=== PATIENT | male | born 2005 | race Caucasian/White ===

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

== ENCOUNTER 2023-10-17 16:21 | Outpatient (REF) | payer MEDICAID, SELFPAY ==
[2023-10-17 21:42] LABS: VALPROIC ACID 27.2 ug/mL
== END 2023-10-17 16:22 | disposition home or self-care (01) ==
LOC: NCHCN 16:21
PROVIDERS: PCP Neuromusculoskeletal Medicine & OMM; Visit Provider Nurse Practitioner Family
DX: F84.0 Autistic disorder (principal); Z51.81 Encounter for therapeutic drug level monitoring; Z79.899 Other long term (current) drug therapy
CPT/HCPCS: 80164

== ENCOUNTER 2024-07-31 17:45 | Outpatient (REF) | payer MEDICARE, MEDICAID, SELFPAY ==
--- OUTSIDE RECORDS SUMMARY | 2024-07-31 17:47 | XMS_ITS | Data Portability ---
Author Organization [facility] Address [place] [address] Assessment No assessment recorded. Plan of Treatment Reminders Order Date Submit Date Provider Last Modified By Organization Details Last Modified Time Details Appointments Office Visit 2023 03:00P M Not available Not available Not available Follow Up 2023 03:30P M Not available Not available Not available Lab valproic acid, total, serum - 1R [id number] [facility] (Registration ), [address] [place] [address] [place], [address], 10/18/2023 09:44:51 TSH, serum, reflex free T4 - 1Y,1R,1P 2023 024 [email or web address] [facility] (Registration ), [address] [place] [address] [place], [address], 07/31/2024 16:51:59 HbA1c (hemoglob in A1c), blood - 1Y,1R,1P 2023 024 [email or web address] [facility] (Registration ), [address] [place] [address] [place], [address], 07/31/2024 16:51:59 lipids, total, serum - 1Y,1R,1P 2023 024 [id number] [facility] (Registration ), [address] [place] [address] [place], [address], 07/31/2024 16:51:59 CMP, serum or plasma - 1Y,1R,1P 2023 024 [email or web address] [facility] (Registration ), [address] [place] [address] [place], [address], 07/31/2024 16:51:59 CBC w/ auto diff - 1Y,1R,1P 2023 024 [facility] (Registration ), [address] [place] [address] [place], [address], 07/31/2024 16:51:59 valproic acid, total, serum - 1Y,1R,1P 2023 024 [email or web address] [facility] (Registration ), [address] [place] [address] [place], [address], 07/31/2024 16:51:59 Referral None recorded. Procedures None recorded. Surgeries None recorded. Imaging None recorded. Medication Orders Zepbound 2.5 mg/0.5 mL subcutane ous pen injector 2023 024 [id number] [employer] [address], [place], [address], 07/31/2024 16:51:59 Patient TargetsNo targets recorded. Patient InstructionsNo instructions recorded. Reason for Referral None Reported. Results Created Date Observation Date Name Description Value Unit Range Abnormal Flag Note LastModifiedBy Organization Detail LastModifiedTime 10/17/20 23 10/17/2023 VALPR OIC ACID valproic acid 27.2 ug/mL Thera peuti c Range is 50-10 0 ug/ml . Not Available [address] [place], [address] 10/17/2023 21:46:10 Result Notes None recorded. Problems Name Problem SNOMED Code Status Onset Date Resolution Date Notes Provider Name and Address Organization Details Recorded Time Insomnia 610217721 Active 201905/13/20 22 - Comments only - Jennie Millan PHLEBOTOMY TECH - Doing well assuming that he takes Trazadon e. Problem Code: G47.00; Problem Code Type: ICD-10; Not Available [facility] 3 05:58:06 Autistic disorder 766870287 Active 201905/04/20 23 - Comments only - Rosalia Rider FITTER'S ASSISTANT - Continue s to experien ce behavior s that are difficul t to manage. Will start depakote at HS to try to decrease overall behavior s so that olanzapi ne is not needed as often for PRN. Will follow up in 1 month to assess, I encourag e dad to call if they have any concerns . Plan to check depakote level at next visit. 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 Problem Code: K59.09; Problem Code Type: ICD-10; Not Available [facility] 3 05:58:07 Disorder of skin and/or subcutan eous tissue 48488068 Active 2019 Problem Code: L98.9; Problem Code Type: ICD-10; Not Available [facility] 3 05:58:07 Adult health examinat ion Active 202005/13/20 22 - Comments only - Jennie TRANP - Annual exam complete d at today's visit. Kaiden is vaccinat ed for COVID-19 . His father tries to encourag e physical activity at home. He does feel as though Kaiden could be more active during the day at school. I will provide a letter in support of this. Problem Code: Z00.00; Problem Code Type: ICD-10; Not Available [facility] 3 05:58:07 Obesity 745110196 Active 202012/22/19 23 - Comments only - Jennie Millan PHLEBOTOMY TECH - CBC, CMP and lipids at today's visit. Problem Code: E66.9; Problem Code Type: ICD-10; Not Available [facility] 3 05:58:07 Localiza tion-rel ated symptoma tic epilepsy 276765060 Completed 201902/26/2021 Problem Code: G40.109; Problem Code Type: ICD-10; Not Available [facility] 3 05:58:07 Periapic al abscess 750078053 Completed 202105/13/2022 Problem Code: K04.7; Problem Code Type: ICD-10; Not Available [facility] 3 05:58:07 Immuniza tion educatio n Completed 202005/13/2022 Problem Code: Z71.85; Problem Code Type: ICD-10; Not Available [facility] 3 05:58:07 Problem Notes None recorded. Medical Equipment None Reported. Allergies No known drug allergies Medications Name Sig Start Date Stop Date Status Note LastModified by Organization Details LastModified Time fluoxetine 40 mg capsule TAKE ONE CAPSULE BY MOUTH EVERY MORNING active Not Available Not Available No t Available ziprasidon e 80 mg capsule 1 capsule by mouth at bedtime 07/31 completed [facility] Not Available Not Available Not Available divalproex 250 mg tablet,del ayed release TAKE 1 TABLET BY MOUTH EVERY DAY AT NOON 07/31 completed Not Available Not Available Not Available trazodone 50 mg tablet TAKE ONE TO TWO TABLETS BY MOUTH AT BEDTIME NEEDED FOR SLEEP active Not Available Not Available No t Available clonazepam 0.5 mg tablet TAKE 1 TABLET BY MOUTH TWICE DAILY NEEDED. INCREASE ANXIETY 10/17 completed Not Available Not Available Not Available olanzapine 5 mg tablet TAKE ONE TABLET BY MOUTH UP TO FOUR TIMES A DAY NEEDED FOR AGITATION active Not Available Not Available No t Available penicillin V potassium 500 mg tablet Take 2 tablet by mouth twice a day 12/14 completed Not Available Not Available Not Available ziprasidon e 20 mg capsule TAKE ONE CAPSULE BY MOUTH EVERY MORNING 07/31 completed Not Available Not Available Not Available trazodone 100 mg tablet TAKE 1 TABLET BY MOUTH ONCE DAILY WITH FOOD active Not Available Not Available No t Available divalproex ER 500 mg tablet,ext ended release 24 hr TAKE TWO TABLETS BY MOUTH EVERY EVENING AT BEDTIME active Not Available Not Available No t Available olanzapine 10 mg disintegra ting tablet 1 tablet on tongue twice a day as needed 2022 active Not Available Not Available Not Avai lable fluoxetine 10 mg capsule TAKE 1 CAPSULE BY MOUTH DAILY 10/17 completed Not Available Not Available Not Available ziprasidon e 40 mg capsule TAKE 1 CAPSULE BY MOUTH TWICE DAILY 07/31 completed Not Available Not Available Not Available lorazepam 1 mg tablet TAKE 1 TABLET BY MOUTH DAILY NEEDED FOR SEVERE AGITATION 07/31 completed Not Available Not Available Not Available ziprasidon e 60 mg capsule TAKE ONE CAPSULE BY MOUTH AT BEDTIME active Not Available Not Available No t Available fluoxetine 20 mg capsule TAKE 1 CAPSULE BY MOUTH EVERY MORNING active Not Available Not Available No t Available olanzapine 5 mg disintegra ting tablet DISSOLVE 1 TABLET ON THE TONGUE TWICE DAILY NEEDED active Not Available Not Available No t Available divalproex ER 250 mg tablet,ext ended release 24 hr TAKE 1 TABLET BY MOUTH DAILY AT NOON 07/31 completed Not Available Not Available Not Available Abilify 5 mg tablet Take 1 tablet by mouth once a day 05/13 completed Not Available Not Available Not Available melatonin 5 mg tablet Take 1 tab by mouth at bedtime 01/20 completed Not Available Not Available Not Available Zepbound 2.5 mg/0.5 mL subcutaneo us pen injector Inject 2.5 mg every week by subcutane ous route. 2023 active Not Available Not Available Not Avai lable Vitals Date Recorded Body weight Body temperature Oxygen saturation Oxygen saturation in Arterial blood by Pulse oximetry Heart rate Respiratory rate Systolic blood pressure Diastolic blood pressure Provider Name and Address Organization Details Last Updated DateTime 4 685104. 19 g 96.9 [degF] 96 % 96 % 96 /min 16 /min 122 mm[Hg] 96 mm[Hg] JOSELUIS SHEPHERD CMA [facility] 4 15:19:43 Social History Question Answer Notes LastModified by Organizat ion Details LastModified Time Tobacco Smoking Status Never Smoker JOSELUIS SHEPHERD CMA null, [facility] 07/31/2024 15:22:40 What Was The Date Of Your Most Recent Tobacco Screening? 07/31/2024 [email or web address] Information not available 07/31/2024 Do You Or Have You Ever Used Any Other Forms Of Tobacco Or Nicotine? No Information not available 07/31/2024 Sex: Male Functional Status None recorded. Mental Status None recorded. Family History Nothing Reported. Medical History No medical history recorded. Immunizations Vaccine Type Date Status Provider Name and Address Organization Details Recorded Time COVID-19, mRNA, LNP-S, PF, tripp-sucrose, 30 mcg/0.3 mL 07/31/[address] [place], [address], [facility] 07/31/2024 16:45:31 Influenza, split virus, trivalent, PF 07/31/[address], [place], [address], [facility] 07/31/2024 16:45:31 MMR 12/01/2004 completed Not Available [facility] 05:48:45 MMR 09/24/2008 completed Not Available [facility] 05:48:45 DTaP, unspecified formulation 07/31/2004 completed Not Available [facility] 09/09/2023 05:48:45 DTaP, unspecified formulation 09/24/2008 completed Not Available [facility] 09/09/2023 05:48:45 meningococcal ACWY, unspecified formulation 08/19/2014 completed Not Available [facility] 09/09/2023 05:48:45 pneumococcal, unspecified formulation 12/01/2004 completed Not Available [facility] 09/09/2023 05:48:45 pneumococcal, unspecified formulation 2003 completed Not Available [facility] 09/09/2023 05:48:45 pneumococcal, unspecified formulation 2003 completed Not Available [facility] 09/09/2023 05:48:46 pneumococcal, unspecified formulation 2003 completed Not Available [facility] 09/09/2023 05:48:46 DTaP-Hep B-IPV 12/29/2004 completed Not Available [facility] 09/09/2023 05:48:46 DTaP-Hep B-IPV 2003 completed Not Available [facility] 09/09/2023 05:48:46 DTaP-Hep B-IPV 2003 completed Not Available [facility] 09/09/2023 05:48:46 meningococcal MCV4P 01/21/2020 completed Not Available [facility] 09/09/2023 05:48:46 Tdap 08/19/2014 completed Not Available [facility] 05:48:46 Influenza, split virus, quadrivalent, PF 12/21/2022 completed Not Available [facility] 09/09/2023 05:48:46 Influenza, split virus, quadrivalent, PF 01/21/2020 completed Not Available [facility] 09/09/2023 05:48:46 Influenza, split virus, quadrivalent, PF 09/08/2021 completed Not Available [facility] 09/09/2023 05:48:47 Hib, unspecified formulation 2003 completed Not Available [facility] 09/09/2023 05:48:47 Hib, unspecified formulation 2003 completed Not Available [facility] 09/09/2023 05:48:47 Hib, unspecified formulation 07/31/2004 completed Not Available [facility] 09/09/2023 05:48:47 Hib, unspecified formulation 2003 completed Not Available [facility] 09/09/2023 05:48:47 COVID-19, mRNA, LNP-S, PF, 100 mcg/0.5mL dose or 50 mcg/0.25mL dose 09/08/2021 completed Not Available [facility] 09/09/20 05:48:47 COVID-19, mRNA, LNP-S, PF, 100 mcg/0.5mL dose or 50 mcg/0.25mL dose 10/06/2021 completed Not Available [facility] 09/09/20 05:48:47 varicella 12/04/2004 completed Not Available [facility] 05:48:47 varicella 09/24/2008 completed Not Available [facility] 05:48:47 COVID-19, mRNA, LNP-S, bivalent, PF, 30 mcg/0.3 mL dose 12/21/2022 completed Not Available [facility] 09/09/2023 05:48:48 influenza, unspecified formulation 11/05/2015 completed Not Available [facility] 09/09/2023 05:48:48 polio, unspecified formulation 09/24/2008 completed Not Available [facility] 09/09/2023 05:48:48 Past Encounters Encounter ID Performer Location Encounter Start Date Encounter Closed Date Diagnosis/Indication Diagnosis SNOMED-CT Code Diagnosis ICD10 Code [id number] JOSELUIS SHEPHERD CMA [address] [address] 10/17/2023 14:55:09 10/17/2023 15:16:16 Medication monitoring 784110046 Z51.81 [id number] VIVIANA VICTORIA [address] [address] 07/31/2024 15:09:12 07/31/2024 16:04:44 Obesity 123309901 E66.9 Medication monitoring 39 5401487 Z51.81 Active or passive immunization 606718101 Z23 Health Concerns Section Related Observation LastModified by Organization Detai ls LastModified Time None Recorded Concern Status LastModified by Organization Details LastModified Time None Recorded Advance Directives Directive None Recorded Payers Encounter Date Sequence Insurance Name Policy Number Policy Carlos Covered Member ID Carlos Member ID Guarantor Name 10/17/2023 1 *SELF PAY* Anthony Hale 07/31/2024 1 *SELF PAY* Anthony Hale Notes Date Note Type Note Provider Name and Address Organization Details Recorded Time 07/31/2024 text/html HPI Notes: The patient's caregiver reports that Kaiden has a consistent eating routine, including a bagel for breakfast, then lunch, a snack around 3 PM, and dinner around 5:30 PM. They have eliminated the bedtime snack, and the patient is no longer aggressive about requesting it. Despite this routine, the patient continues to gain weight. Kaiden started taking olanzapine last year and his is doing significantly better in terms of anxiety and mood. He goes for a walk daily with his Dad but is not physically active outside of that time. Kaiden's Dad wonders if weightloss medication would be a good option. VIVIANA VICTORIA [address], [place], [address], [facility]. 07/31/2024 16:51:42
--- OUTSIDE RECORDS SUMMARY | 2024-07-31 17:47 | XMS_ITS | Continuity of Care Document ---
Author Organization [facility] Address [address] [place] [address] Assessment No assessment recorded. Plan of Treatment Reminders Order Date Submit Date Provider Last Modified By Organization Details Last Modified Time Details Appointments Office Visit 2023 03:00P M Not available Not available Not available Follow Up 2023 03:30P M Not available Not available Not available Lab TSH, serum, reflex free T4 - 1Y,1R,1P 2023 024 [id number] [facility] (Registration ), [address] [place] [address] [place], [address], 07/31/2024 16:51:59 HbA1c (hemoglob in A1c), blood - 1Y,1R,1P 2023 024 [id number] [facility] (Registration ), [address] [place] [address] [place], [address], 07/31/2024 16:51:59 lipids, total, serum - 1Y,1R,1P 2023 024 [id number] [facility] (Registration ), [address] [place] [address] [place], [address], 07/31/2024 16:51:59 CMP, serum or plasma - 1Y,1R,1P 2023 024 [id number] [facility] (Registration ), [address] [place] [address] [place], [address], 07/31/2024 16:51:59 CBC w/ auto diff - 1Y,1R,1P 2023 024 [id number] [facility] (Registration ), [address] [place] [address] , [place], [address], 07/31/2024 16:51:59 valproic acid, total, serum - 1Y,1R,1P 2023 024 [id number] [facility] (Registration ), [address] [place] [address] [place], [address], 07/31/2024 16:51:59 Referral None recorded. Procedures None recorded. Surgeries None recorded. Imaging None recorded. Medication Orders Zepbound 2.5 mg/0.5 mL subcutane ous pen injector 2023 024 [id number] [employer] [address], [place], [address], 07/31/2024 16:51:59 Patient TargetsNo targets recorded. Patient InstructionsNo instructions recorded. Reason for Referral None Reported. Problems Name Problem SNOMED Code Status Onset Date Resolution Date Notes Provider Name and Address Organization Details Recorded Time Insomnia 801567538 Active 201905/13/20 22 - Comments only - Jennie Millan SCIENCE SPECIALIST - Doing well assuming that he takes Trazadon e. 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 Problem Code: K59.09; Problem Code Type: ICD-10; Not Available [facility] 3 05:58:07 Disorder of skin and/or subcutan eous tissue 39528972 Active 2019 Problem Code: L98.9; Problem Code Type: ICD-10; Not Available [facility] 3 05:58:07 Adult health examinat ion Active 202005/13/20 22 - Comments only - Jennie Millan SCIENCE SPECIALIST - Annual exam complete d at today's visit. Kaiden is vaccinat ed for COVID-19 . His father tries to encourag e physical activity at home. He does feel as though Kaiden could be more active during the day at school. I will provide a letter in support of this. Problem Code: Z00.00; Problem Code Type: ICD-10; Not Available [facility] 3 05:58:07 Obesity 550642622 Active 202012/22/19 23 - Comments only - Jennie Millan SCIENCE SPECIALIST - CBC, CMP and lipids at today's visit. Problem Code: E66.9; Problem Code Type: ICD-10; Not Available [facility] 3 05:58:07 Localiza tion-rel ated symptoma tic epilepsy 047083394 Completed 201902/26/2021 Problem Code: G40.109; Problem Code Type: ICD-10; Not Available [facility] 3 05:58:07 Periapic al abscess 173148407 Completed 202105/13/2022 Problem Code: K04.7; Problem Code Type: ICD-10; Not Available [facility] 3 05:58:07 Immuniza tion educatio n Completed 202005/13/2022 Problem Code: Z71.85; Problem Code Type: ICD-10; Not Available [facility] 05:58:07 Problem Notes None recorded. Medical Equipment [...] Address Organization Details Last Updated DateTime 4 891591. 19 g 96.9 [degF] 96 % 96 % 96 /min 16 /min 122 mm[Hg] 96 mm[Hg] JOSELUIS SHEPHERD CMA [facility] 15:19:43 Social History Question Answer Notes LastModified by Organizat ion Details LastModified Time Tobacco Smoking Status Never Smoker JOSELUIS SHEPHERD CMA null, [facility] 07/31/2024 15:22:40 What Was The Date Of Your Most Recent Tobacco Screening? 07/31/2024 [email or web address] Information not available 07/31/2024 Do You Or Have You Ever Used Any Other Forms Of Tobacco Or Nicotine? No [email or web address] Information not available 07/31/2024 Sex: Male Functional Status None recorded. Mental Status None recorded. Family History Nothing Reported. Medical History No medical history recorded. Immunizations Vaccine Type Date Status Provider Name and Address Organization Details Recorded Time COVID-19, mRNA, LNP-S, PF, tripp-sucrose, 30 mcg/0.3 mL 07/31/[address], [place], [address], [facility] 07/31/2024 16:45:31 Influenza, split virus, trivalent, PF 07/31/[address], [place], [address], [facility] 07/31/2024 16:45:31 MMR 12/01/2004 completed Not Available [facility] 05:48:45 MMR 09/24/2008 completed Not Available [facility] 05:48:45 DTaP, unspecified formulation 07/31/2004 completed Not Available [facility] 09/09/2023 05:48:45 DTaP, unspecified formulation 09/24/2008 completed Not Available [facility] 09/09/2023 05:48:45 meningococcal ACWY, unspecified formulation 08/19/2014 completed Not Available [facility] 09/09/2023 05:48:45 pneumococcal, unspecified formulation 12/01/2004 completed Not Available [facility] 09/09/2023 05:48:45 pneumococcal, unspecified formulation 2003 completed Not Available [facility] 09/09/2023 05:48:45 pneumococcal, unspecified formulation 2003 completed Not Available [facility] 09/09/2023 05:48:46 pneumococcal, unspecified formulation 2003 completed Not Available [facility] 09/09/2023 05:48:46 DTaP-Hep B-IPV 12/29/2004 completed Not Available [facility] 09/09/2023 05:48:46 DTaP-Hep B-IPV 2003 completed Not Available [facility] 09/09/2023 05:48:46 DTaP-Hep B-IPV 2003 completed Not Available [facility] 09/09/2023 05:48:46 meningococcal MCV4P 01/21/2020 completed Not Available [facility] 09/09/2023 05:48:46 Tdap 08/19/2014 completed Not Available [facility] 05:48:46 Influenza, split virus, quadrivalent, PF 12/21/2022 completed Not Available [facility] 09/09/2023 05:48:46 Influenza, split virus, quadrivalent, PF 01/21/2020 completed Not Available [facility] 09/09/2023 05:48:46 Influenza, split virus, quadrivalent, PF 09/08/2021 completed Not Available [facility] 09/09/2023 05:48:47 Hib, unspecified formulation 2003 completed Not Available [facility] 09/09/2023 05:48:47 Hib, unspecified formulation 2003 completed Not Available [facility] 09/09/2023 05:48:47 Hib, unspecified formulation 07/31/2004 completed Not Available [facility] 09/09/2023 05:48:47 Hib, unspecified formulation 2003 completed Not Available [facility] 09/09/2023 05:48:47 COVID-19, mRNA, LNP-S, PF, 100 mcg/0.5mL dose or 50 mcg/0.25mL dose 09/08/2021 completed Not Available [facility] 09/09/20 05:48:47 COVID-19, mRNA, LNP-S, PF, 100 mcg/0.5mL dose or 50 mcg/0.25mL dose 10/06/2021 completed Not Available [facility] 09/09/20 05:48:47 varicella 12/04/2004 completed Not Available [facility] 05:48:47 varicella 09/24/2008 completed Not Available [facility] 05:48:47 COVID-19, mRNA, LNP-S, bivalent, PF, 30 mcg/0.3 mL dose 12/21/2022 completed Not Available [facility] 09/09/2023 05:48:48 influenza, unspecified formulation 11/05/2015 completed Not Available [facility] 09/09/2023 05:48:48 polio, unspecified formulation 09/24/2008 completed Not Available [facility] 09/09/2023 05:48:48 Past Encounters Encounter ID Performer Location Encounter Start Date Encounter Closed Date Diagnosis/Indication Diagnosis SNOMED-CT Code Diagnosis ICD10 Code [id number] VIVIANA VICTORIA [address] [address] 07/31/2024 15:09:12 07/31/2024 16:04:44 Obesity 265250978 E66.9 Medication monitoring 39 7622304 Z51.81 Active or passive immunization 790794640 Z23 Health Concerns Section Related Observation LastModified by Organization Marshalviola ls LastModified Time None Recorded Concern Status LastModified by Organization Details LastModified Time None Recorded Payers Encounter Date Sequence Insurance Name Policy Number Policy Carlos Covered Member ID Carlos Member ID Guarantor Name 07/31/2024 1 *SELF PAY* Anthony mikaelaayaan Hale Notes Date Note Type Note Provider [...] good option. VIVIANA VICTORIA [address], [place], [address], [facility]. 07/31/2024 16:51:42
[2024-07-31 21:33] LABS: Abs Immature Grans 0.04 10^3/uL (0.0-0.06); Absolute Basophil Count 0.05 10^3/uL (0.0-0.2); Absolute Eosinophil Count 0.29 10^3/uL (0.0-0.7); Absolute Lymphocyte Count 1.82 10^3/uL (1.2-3.4); Absolute Monocyte Count 0.81 10^3/uL (0.1-0.8); Basophils % 0.8 %; Eosinophils % 4.4 %; HGB 16.9 g/dL (13.5-17.5); Immature Grans % 0.6 %; Lymphocytes % 27.5 %; MCH 29.6 pg (27.0-33.0); MCHC 33.8 % (32.0-36.0); MCV 88 fL (80-95); Monocytes % 12.3 %; Neutrophils % 54.4 %; Platelet Count 181 10^3/uL (130-400); RDW 12.1 % (11.8-14.1); RDW-SD 38.8 fL; WBC 6.61 10^3/uL (4.4-10.8)
[2024-07-31 21:57] LABS: VALPROIC ACID 58.2 ug/mL
[2024-07-31 22:15] LABS: Hemoglobin A1C 7.9 % (<5.7)
[2024-07-31 22:30] LABS: ALT 131 U/L (16-63); AST 71 U/L (15-37); Albumin 4.5 g/dL (3.4-5.0); Alkaline Phosphatase 92 U/L (46-116); Anion Gap 12.5 mmol/L (3-11); BUN 12 mg/dL (7-18); CO2 26.5 mmol/L (21.0-32.0); Calculated LDL 138 mg/dL (<100); Chloride 101 mmol/L (98-107); Cholesterol 207 mg/dL (<200); Estimated GFR 109.81 (mL/min/1.73m2); Glucose 79 mg/dL (74-106); HDL Cholesterol 43 mg/dL (40-60); Sodium 140 mmol/L (136-145); TSH (W/Ref FT4) 2.52 uIU/mL (0.36-3.74); Total Protein 8.1 g/dL (6.4-8.2); Triglyceride 133 mg/dL (<150)
== END 2024-07-31 17:46 | disposition home or self-care (01) ==
LOC: NCHCN 17:45
PROVIDERS: PCP Neuromusculoskeletal Medicine & OMM; Visit Provider Nurse Practitioner Family
DX: E66.9 Obesity, unspecified (principal); Z51.81 Encounter for therapeutic drug level monitoring
CPT/HCPCS: 80053; 80061; 80164; 83036; 84443; 85025

== ENCOUNTER 2024-11-15 21:28 | Outpatient (REF) | payer MEDICARE, MEDICAID, SELFPAY ==
[2024-11-15 21:17] LABS: ALT 125 U/L (16-63); AST 45 U/L (15-37); Albumin 4.3 g/dL (3.4-5.0); Alkaline Phosphatase 79 U/L (46-116); Anion Gap 10.6 mmol/L (3-11); BUN 11 mg/dL (7-18); Bilirubin, Total 0.42 mg/dL (0.2-1.0); CO2 26.4 mmol/L (21.0-32.0); Calculated LDL 100 mg/dL (<100); Chloride 104 mmol/L (98-107); Cholesterol 172 mg/dL (<200); Estimated GFR 109.81 (mL/min/1.73m2); Glucose 88 mg/dL (74-106); HDL Cholesterol 45 mg/dL (40-60); Potassium 4.2 mmol/L (3.5-5.1); Sodium 141 mmol/L (136-145); Total Protein 7.8 g/dL (6.4-8.2); Triglyceride 138 mg/dL (<150)
== END 2024-11-15 21:29 | disposition home or self-care (01) ==
LOC: NCHCN 21:28
PROVIDERS: PCP Neuromusculoskeletal Medicine & OMM; Visit Provider Nurse Practitioner Family
DX: R74.8 Abnormal levels of other serum enzymes (principal)
CPT/HCPCS: 80053; 80061

== ENCOUNTER 2025-02-14 15:14 | Outpatient (REF) | payer MEDICARE, MEDICAID, SELFPAY ==
[2025-02-14 21:56] LABS: COMMENT (LAB VIEW ONLY) 207.34 mg/dL; Microalb ug/mg Crea 29.9 ug/mg Cr
== END 2025-02-14 15:15 | disposition home or self-care (01) ==
LOC: NCHCN 15:14
PROVIDERS: PCP Neuromusculoskeletal Medicine & OMM; Visit Provider Nurse Practitioner Family
DX: E11.9 Type 2 diabetes mellitus without complications (principal)
CPT/HCPCS: 82043; 82570

== ENCOUNTER 2025-05-29 17:29 | Outpatient (REF) | payer MEDICARE, MEDICAID, SELFPAY ==
[2025-05-29 18:10] LABS: TSH (W/Ref FT4) 1.41 uIU/mL (0.36-3.74)
== END 2025-05-29 17:30 | disposition home or self-care (01) ==
LOC: LBN 17:29
PROVIDERS: PCP Neuromusculoskeletal Medicine & OMM; Visit Provider Registered Nurse
DX: Z79.899 Other long term (current) drug therapy (principal)
CPT/HCPCS: 80164; 84443